=== PATIENT | male | born 1955 | race Caucasian/White ===

== ENCOUNTER 2021-12-18 07:17 | Emergency (ER) | payer MEDICARE, BC | END 2021-12-18 08:27 | disposition home or self-care (01) | LOC: JP.ED 07:17 | DX: M79.645 Pain in left finger(s) (principal); E78.00 Pure hypercholesterolemia, unspecified; Z88.5 Allergy status to narcotic agent; Z91.048 Other nonmedicinal substance allergy status; Z79.899 Other long term (current) drug therapy; W22.09XA Striking against other stationary object, initial encounter | CPT/HCPCS: 73140-26-F1; 73140-F1; 99283 ==